=== PATIENT | female | born 1975 | race African-American/Black ===

== ENCOUNTER 2018-10-08 16:58 | Inpatient (IN) | payer OTHER ==
[2018-10-08 17:49] VITALS: BMI 26.2
--- NOTE | 2018-10-08 18:44 | HP ---
CIWA Score Nausea/Vomitin-Mild Nausea/No Vomiting Muscle Tremors: 4-Moderate,w/Arms Extend Anxiety: 3 Agitation: 0-Normal Activity Paroxysmal Sweats: 3 Orientation: 0-Oriented Tacttile Disturbances: 0-None Auditory Disturbances: 0-None Visual Disturbances: 0-None Headache: 3-Moderate CIWA-Ar Total Score: 14 - Admission Criteria OAS Guidelines: Admission for Medically Managed Detox: Requires at least one of the followin. CIWA greater than 12 2. Seizures within the past 24 hours 3. Delirium tremens within the past 24 hours 4. Hallucinations within the past 24 hours 5. Acute intervention needed for co occurring medical disorder 6. Acute intervention needed for co occurring psychiatric disorder 7. Severe withdrawal that cannot be handled at a lower level of care (continued vomiting, continued diarrhea, abnormal vital signs) requiring intravenous medication and/or fluids 8. Patient presents the following: CIWA greater than 12 (CHAITANYA 0.234) Admission Criteria Met: Admission criteria met Admission ROS [facility] Chief Complaint: Alcohol withdrawal. Allergies/Adverse Reactions: Allergies Allergy/AdvReac Type Severity Reaction Status Date / Time No Known Allergies Allergy Verified 10/08/18 17:36 History of Present Illness: This is the first detox attempt for this 43 yof w/ a hx of alcohol use. Alcohol use began at age 22. Current 1 pint x past 4 years. Current CHAITANYA 0.234 Nicotine use began at age 21. Denies other substance use hx. Longest length of sobriety for 4 months ending in November 1017. States hx seizures - last about 2 years ago; Last blackout x 2 weeks ago. PMHx: Elevated liver enzymes, Cough x 3 weeks. HTN, Hypothyroid, iron deficiency anemia. MHHx:Denies depression. Denies thoughts of harming self or others. Patient Name: Linsey Bethea Date: 1975 Address: [address] [place] [address] Sex: Female Rx Written Rx Dispensed Drug Quantity Days Supply Prescriber Name 02/16/2018 02/17/2018 chlordiazepoxide 25 mg capsule 20 5 Cristóbal Easley MD Exam Limitations: No Limitations - Ebola screening Have you been sick,other than usual withdrawal symptoms: No (Denies recent contact w/ measles. ) Do you have a fever: No - Review of Systems Constitutional: Chills, Diaphoresis, Changes in sleep (Difficulty staying asleep - tried melatonin - but still wakes up.) EENT: reports: No Symptoms Reported Respiratory: reports: Cough (x 3 weeks - clear phlegm) Cardiac: reports: No Symptoms Reported GI: reports: Nausea : reports: No Symptoms Reported Musculoskeletal: reports: Muscle Pain (Generalized muscle aches) Integumentary: reports: No Symptoms Reported Neuro: reports: Headache (Moderate frontal), Numbness (Numbness in fingers and toes - intermittent), Tremors Endocrine: reports: Excessive Sweating Hematology: reports: Anemia (Iron deficiency anemia - usually takes an infusion shots -none recently) Psychiatric: reports: Judgement Intact, Orientated x3, Anxious Patient History - Patient Medical History Hx Asthma: No Hx Chronic Obstructive Pulmonary Disease (COPD): No Hx Cardiac Disorders: No Hx Hypertension: No Hx Seizures: No Hx Diabetes: No Hx Gastrointestinal Disorders: No Hx Genitourinary Disorders: No Hx Sexually Transmitted Disorders: No Hx Renal Disease (ESRD): No Hx Depression: Yes Hx Suicide Attempt: No Hx Schizophrenia: No - Patient Surgical History Past Surgical History: No Hx Neurologic Surgery: No Hx Cataract Extraction: No Hx Cardiac Surgery: No Hx Lung Surgery: No Hx Breast Surgery: No Hx Breast Biopsy: No Hx Abdominal Surgery: No Hx Appendectomy: No Hx Cholecystectomy: No Hx Genitourinary Surgery: No Hx Section: No Hx Orthopedic Surgery: No Anesthesia Reaction: No - PPD History Previous Implant?: Yes Documented Results: Negative w/o proof Implanted On Prior R Admission?: Yes PPD to be Administered?: No - Reproductive History Patient is a Female of Child Bearing Age (11 -55 yrs old): Yes Last Menstrual Period: 09/10/17 (On depoprovera) Patient : No - Smoking Cessation Smoking history: Current every day smoker Have you smoked in the past 12 months: Yes Aproximately how many cigarettes per day: 10 Hx Chewing Tobacco Use: No Initiated information on smoking cessation: Yes 'Breaking Loose' booklet given: 10/08/18 - Substance & Tx. History Hx Alcohol Use: Yes Hx Substance Use: Yes Substance Use Type: Alcohol Hx Substance Use Treatment: Yes (first admission to any detox) - Substances abused Alcohol Substance route: Oral Frequency: Daily Amount used: 1PT OF VODKA Age of first use: 22 Date of last use: 10/08/18 Admission Physical Exam [facility] - Vital Signs Vital Signs: Vital Signs - 24 hr 10/08/18 17:44 Temperature 97.6 F Pulse Rate 89 Respiratory 16 Rate Blood Pressure 131/93 - Physical General Appearance: Yes: Nourished, Mild Distress, Alcohol on Breath, Tremorous , Sweating (Increased facial mo), Anxious HEENTM: Yes: EOMI (Jerking movements of eyes on (L) lateral gaze), Hearing grossly Normal, Normocephalic, JODIE Respiratory: Yes: Lungs Clear, Normal Breath Sounds, No Respiratory Distress Neck: Yes: No masses,lesions,Nodules, Supple Breast: Yes: Breast Exam Deferred Cardiology: Yes: Regular Rhythm, Regular Rate, S1, S2 Abdominal: Yes: Non Tender, Soft, Increased Bowel Sounds Genitourinary: Yes: Within Normal Limits Back: Yes: Normal Inspection Musculoskeletal: Yes: full range of Motion, Gait Steady Extremities: Yes: Normal Capillary Refill, Normal Range of Motion, Tremors 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 NML intact (Jerking movements of eyes on (L) lateral gaze), Fully Oriented, Alert, Motor Strength 5/5 Integumentary: Yes: Normal Color, Warm Lymphatic: Yes: Within Normal Limits - Diagnostic (1) Alcohol dependence with uncomplicated withdrawal Current Visit: Yes Status: Acute (2) Nystagmus Current Visit: Yes Status: Acute (3) History of asthma Current Visit: Yes Status: Chronic (4) Essential (primary) hypertension Current Visit: Yes Status: Chronic (5) Hypothyroid Current Visit: Yes Status: Chronic Qualifiers: Hypothyroidism type: unspecified Qualified Code(s): E03.9 - Hypothyroidism , unspecified Cleared for Admission [facility] - Detox or Rehab [facility] Level of Care: Medically Managed Detox Regimen/Protocol: Librium Claeared for Rehab Admission: No Breathalyzer - Breathalyzer Breathalyzer: 0.234 Urine Drug Screen - Test Device Lot number: [id number] Expiration date: 05/10/20 - Control Is test valid?: Yes - Results Drug screen NEGATIVE: Yes Inpatient Rehab Admission - Rehab Decision to Admit Inpatient rehab admission?: No
[2018-10-08] MEDS ORDERED: BISMUTH SUBSALICYLATE 524 MG/30 ML UD PO PRN (19:18)
[2018-10-08] MEDS ORDERED: chlordiazePOXIDE HCL 25 MG CAPSULE PO PRN (19:18)
[2018-10-08] MEDS ORDERED: MAG HYDROX/AL HYDROX/SIMETH 30 ML UNIT-DOSE CUP PO PRN (19:18)
[2018-10-08] MEDS ORDERED: chlordiazePOXIDE HCL 25 MG CAPSULE PO ONE (19:18)
[2018-10-08] MEDS ORDERED: MELATONIN 5 MG TABLETS PO PRN (19:18)
[2018-10-08] MEDS ORDERED: NICOTINE POLACRILEX 2 MG GUM BUC PRN (19:18)
[2018-10-08] MEDS ORDERED: ACETAMINOPHEN 325 MG TABLET (FP) PO PRN ×2 (19:18)
[2018-10-08] MEDS ORDERED: MAGNESIUM CITRATE 300 ML BOTTLE PO PRN (19:18)
[2018-10-08] MEDS ORDERED: METHOCARBAMOL 500 MG TABLET PO PRN (19:18)
[2018-10-08] MEDS ORDERED: MENTHOL/PHENOL 1 EACH UD MM PRN (19:18)
[2018-10-08] MEDS ORDERED: IBUPROFEN 400 MG TABLET (FP) PO PRN (19:18)
[2018-10-08] MEDS ORDERED: MAGNESIUM HYDROX 2400MG/30ML ORAL SUSPENSION 30 ML CUP PO PRN (19:18)
[2018-10-08] MEDS ORDERED: ALBUTEROL SO4 0.083% IH SOL 2.5 MG/3 ML VIAL.NEB. NEB PRN (19:21)
[2018-10-08] MEDS: guaiFENesin 200 MG/10 ML 10 ML UNIT-DOSE CUPS PO SCH (19:57)
[2018-10-08] MEDS: THIAMINE HCL 100 MG TABLET (FP) PO SCH (22:13)
[2018-10-08] MEDS: chlordiazePOXIDE HCL 25 MG CAPSULE PO SCH (22:14)
[2018-10-08 23:14] LABS: EPI CELLS 1.9 /HPF (0-5/HPF); URINE APPEARANCE CLOUDY; URINE BACTERIA >9000 /hpf (NEGATIVE); URINE BILIRUBIN NEGATIVE (NEGATIVE); URINE CASTS 51 /lpf (0-8); URINE COLOR YELLOW; URINE GLUCOSE (UA) NEGATIVE (NEGATIVE); URINE KETONE NEGATIVE (NEGATIVE); URINE LEUK ESTERASE 1+ (NEGATIVE); URINE NITRITE POSITIVE (NEGATIVE); URINE PROTEIN 1+ (NEGATIVE); URINE RBC 6 /hpf (0-4); URINE WBC 82 /hpf (0-5)
[2018-10-09] MEDS: guaiFENesin 200 MG/10 ML 10 ML UNIT-DOSE CUPS PO SCH ×5 (01:40→23:09)
[2018-10-09] MEDS: chlordiazePOXIDE HCL 25 MG CAPSULE PO SCH ×4 (04:48→22:23)
[2018-10-09] MEDS ORDERED: LEVOTHYROXINE NA 125 MCG TABLET (FP) PO SCH (07:00)
[2018-10-09] MEDS: LEVOTHYROXINE 100 MCG, LEVOTHYROXINE 25 MCG PO SCH (07:16)
[2018-10-09] MEDS ORDERED: PRENATAL VITAMINS W/ FOLIC ACID TABLET (FP) PO SCH (10:00)
[2018-10-09] MEDS ORDERED: amLODIPine BESYLATE 10 MG TABLET (FP) PO SCH (10:00)
[2018-10-09] MEDS ORDERED: NICOTINE 14 MG/24 HOURS TOPICAL PATCH TD SCH (10:00)
--- NOTE | 2018-10-09 10:16 | PN ---
S CIWA - CIWA Score Nausea/Vomitin-Mild Nausea/No Vomiting Muscle Tremors: 3 Anxiety: 3 Agitation: 3 Paroxysmal Sweats: 1-Minimal Palms Moist Orientation: 3-Disoriented Date>2 days Tacttile Disturbances: 0-None Auditory Disturbances: 0-None Visual Disturbances: 0-None Headache: 2-Mild CIWA-Ar Total Score: 16 [facility] Progress Note (SOAP) Subjective: headaches doing ok with librium detox protocol Objective: 10/09/18 10:16 Vital Signs Temperature 100.2 F H 10/09/18 09:32 Pulse Rate 101 H 10/09/18 10:00 Respiratory Rate 20 10/09/18 09:32 Blood Pressure 122/80 10/09/18 09:32 O2 Sat by Pulse Oximetry (%) Laboratory Last Values Urine Color Yellow 10/08/18 22:20 Urine Appearance Cloudy 10/08/18 22:20 Urine pH 6.0 (5.0-8.0) 10/08/18 22:20 Ur Specific [place] 1.015 (1.010-1.035) 10/08/18 22:20 Urine Protein 1+ (NEGATIVE) H 10/08/18 22:20 Urine Glucose (UA) Negative (NEGATIVE) 10/08/18 22:20 Urine Ketones Negative (NEGATIVE) 10/08/18 22:20 Urine Blood 2+ (NEGATIVE) H 10/08/18 22:20 Urine Nitrite Positive (NEGATIVE) H 10/08/18 22:20 Urine Bilirubin Negative (NEGATIVE) 10/08/18 22:20 Urine Urobilinogen 1.0 mg/dL (0.2-1.0) 10/08/18 22:20 Ur Leukocyte Esterase 1+ (NEGATIVE) H 10/08/18 22:20 Urine WBC (Auto) 82 /hpf (0-5) 10/08/18 22:20 Urine RBC (Auto) 6 /hpf (0-4) 10/08/18 22:20 Urine Casts (Auto) 51 /lpf (0-8) 10/08/18 22:20 U Epithel Cells (Auto) 1.9 /HPF (0-5/HPF) 10/08/18 22:20 Urine Bacteria (Auto) >9000 /hpf (NEGATIVE) 10/08/18 22:20 POC Urine HCG, Qual Negative 10/08/18 22:20 lab noted repeat ua 10/09/18 10:18 blood result pending Assessment: 10/09/18 10:18 withdrawal sx Plan: continue detox
[2018-10-09 10:19] LABS: ALBUMIN 3.6 g/dl (3.4-5.0); ALK PHOS 138 U/L (45-117); ANION GAP 12 MMOL/L (8-16); BILIRUBIN,TOTAL 0.6 mg/dL (0.2-1); BLOOD UREA NITROGEN 8 mg/dL (7-18); CALCIUM 9.4 mg/dL (8.5-10.1); CHLORIDE 105 mmol/L (98-107); CO2 23 mmol/L (21-32); CREATININE 0.7 mg/dL (0.55-1.3); GLUCOSE,RANDOM 75 mg/dL (74-106); POTASSIUM 3.1 mmol/L (3.5-5.1); SGOT/AST 399 U/L (15-37); SGPT/ALT 148 U/L (13-61); SODIUM 140 mmol/L (136-145); TOT PROT 7.5 g/dl (6.4-8.2)
[2018-10-09 10:22] LABS: HEMATOCRIT 43.7 % (32.4-45.2); HEMOGLOBIN 14.5 GM/dL (10.7-15.3); MCHC 33.2 g/dl (32.0-36.0); MEAN CELL VOLUME 93.2 fl (80-96); MEAN PLT VOLUME 9.2 fl (7.5-11.1); PLATELET COUNT 232 K/MM3 (134-434); RBC 4.69 M/mm3 (3.60-5.2); RDW 14.5 % (11.6-15.6); WHITE BLOOD COUNT 3.9 K/mm3 (4.0-10.0)
--- NOTE | 2018-10-09 11:46 | CONSULT ---
[facility] Psychiatric Consult - Data Date of interview: 10/09/18 Admission source: [facility] Identifying data: First admission to [facility] for this 43 y/o AA female self- referred for detoxification (alcohol). Examined at [address] [place] [address]. Patient is , a mother of four, domiciled and currently employed. Substance Abuse History: Discussed with the patient in this session. Ms Ruffin endorses a long standing history of alcohol abuse (since age 23). Additional details in current [facility] report : Smoking history: Current every day smoker. Have you smoked in the past 12 months: Yes. Aproximately how many cigarettes per day: 10. Hx Chewing Tobacco Use: No. Initiated information on smoking cessation: Yes. 'Breaking Loose' booklet given: 10/08/18. - Substance & Tx. History. Hx Alcohol Use: Yes. Hx Substance Use: Yes. Substance Use Type: Alcohol. Hx Substance Use Treatment: Yes (first admission to any detox). - Substances abused. Alcohol. Substance route: Oral. Frequency: Daily. Amount used: 1PT OF VODKA. Age of first use: 22. Date of last use: 10/08/18 Medical History: Remarkable for hypertension, bronchial asthma, iron-deficiency anemia, elevated liver function tests and hypothyroidism. Psychiatric History: Patient denies. Physical/Sexual Abuse/Trauma History: Patient denies. Additional Comment: Drug screen is negative. Mental Status Exam - Mental Status Exam Alert and Oriented to: Time, Place Cognitive Function: Good Patient Appearance: Well Groomed (short stature) Mood: Nervous, Withdrawn, Apprehensive, Hopeful Patient Behavior: Fatigued, Appropriate, Cooperative Speech Pattern: Clear, Appropriate Voice Loudness: Normal Thought Process: Intact, Goal Oriented Thought Disorder: Not Present Hallucinations: Denies Suicidal Ideation: Denies Homicidal Ideation: Denies Insight/Judgement: Fair Sleep: Fair Appetite: Good Muscle strength/Tone: Normal Gait/Station: Normal Psychiatric Findings - Problem List ([place] 1, 2,3) (1) Alcohol dependence with uncomplicated withdrawal Current Visit: Yes Status: Acute (2) Insomnia Current Visit: Yes Status: Chronic Comment: Mild. - Initial Treatment Plan Initial Treatment Plan: Psychoeducation. Sleep hygiene. Detoxification. Support. Relapse prevention (MAT) : discussed with the patient. Insomnia is addressed with melatonin at bedtime. Side effects/benefits revisited. Patient is in agreement with this careplan. Observation.
--- NOTE | 2018-10-09 12:55 | EKG ---
Test Reason : Blood Pressure : / mmHG Vent. Rate : 079 BPM Atrial Rate : 079 BPM P-R Int : 168 ms QRS Dur : 096 ms QT Int : 404 ms P-R-T Axes : 053 020 014 degrees QTc Int : 463 ms NORMAL SINUS RHYTHM NORMAL ECG NO PREVIOUS ECGS AVAILABLE Confirmed by KENDELL WOOD, DARLINE ([id number]) on 10/09/2018 12:54:57 PM Referred By: Confirmed By:DARLINE RDZ MD
[2018-10-09 17:16] LABS: EPI CELLS 11.2 /HPF (0-5/HPF); URINE APPEARANCE TURBID; URINE BILIRUBIN 1+ (NEGATIVE); URINE CASTS 105 /lpf (0-8); URINE COLOR DK YELLOW; URINE GLUCOSE (UA) NEGATIVE (NEGATIVE); URINE KETONE 1+ (NEGATIVE); URINE LEUK ESTERASE 2+ (NEGATIVE); URINE NITRITE POSITIVE (NEGATIVE); URINE PROTEIN 1+ (NEGATIVE); URINE RBC 8 /hpf (0-4); URINE WBC 78 /hpf (0-5)
[2018-10-09 17:33] LABS: URINE BACTERIA 22487.1 /hpf (NEGATIVE); URINE CRYSTALS MODERATE CALCIUM OXA /hpf
--- NOTE | 2018-10-09 19:35 | PN ---
[facility] Progress Note Note: Patient alert and oriented. Patient states PCP recommended alcohol detox because of abnormal lab findings. CMP Sodium 140 mmol/L (136-145) 10/09/18 07:00 Potassium 3.1 mmol/L (3.5-5.1) L 10/09/18 07:00 Chloride 105 mmol/L (98-107) 10/09/18 07:00 Carbon Dioxide 23 mmol/L (21-32) 10/09/18 07:00 Anion Gap 12 MMOL/L (8-16) 10/09/18 07:00 BUN 8 mg/dL (7-18) 10/09/18 07:00 Creatinine 0.7 mg/dL (0.55-1.3) 10/09/18 07:00 Creat Clearance w eGFR 91.76 (>60) 10/09/18 07:00 Random Glucose 75 mg/dL (74-106) 10/09/18 07:00 Calcium 9.4 mg/dL (8.5-10.1) 10/09/18 07:00 Total Bilirubin 0.6 mg/dL (0.2-1) 10/09/18 07:00 AST 399 U/L (15-37) H 10/09/18 07:00 ALT 148 U/L (13-61) H 10/09/18 07:00 Alkaline Phosphatase 138 U/L (45-117) H 10/09/18 07:00 Total Protein 7.5 g/dl (6.4-8.2) 10/09/18 07:00 Albumin 3.6 g/dl (3.4-5.0) 10/09/18 07:00 Reviewed labs. Discussed, with the patients, the effects of ETOH on liver. Encouraged 2 pitchers water daily. Encouraged f/u w/ PCP upon discharge.
[2018-10-09] MEDS: THIAMINE HCL 100 MG TABLET (FP) PO SCH (22:23)
[2018-10-10] MEDS ORDERED: LEVOTHYROXINE NA 25 MCG TABLET (FP) ONE (04:12)
[2018-10-10] MEDS ORDERED: LEVOTHYROXINE NA 100 MCG TABLET (FP) ONE (04:13)
[2018-10-10] MEDS: chlordiazePOXIDE HCL 25 MG CAPSULE PO SCH (05:19)
[2018-10-10] MEDS: guaiFENesin 200 MG/10 ML 10 ML UNIT-DOSE CUPS PO SCH (05:19)
[2018-10-10] MEDS: LEVOTHYROXINE 100 MCG, LEVOTHYROXINE 25 MCG PO SCH (07:21)
[2018-10-10 09:23] VITALS: BP 115/85; PULSE 86; TEMP 97.9
--- NOTE | 2018-10-10 13:13 | DS ---
[facility] Detox Discharge Summary Admission Date: 10/08/18 Discharge Date: 10/10/18 - History Present History: Alcohol Dependence Additional Comments: 43 years old female admitted on 10/08/18 for alcohol withdrawal stabilization feeling better today aftercare [address] reporting that she wants to see her children patient determine not to drink alcohol that she call home some one at home will open the door for her "I want to see my children" less tremor tolerate food and fluid well showered and breakfast alert no acute distress denies suicidal ideation Pertinent Past History: bring in medication list and lab report to 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 and K+ supplement discuss alcohol related low K+ and liver enzyme elevation - Physical Exam Results Vital Signs: Vital Signs Temperature 97.9 F 10/10/18 09:22 Pulse Rate 86 10/10/18 09:22 Respiratory Rate 20 10/10/18 09:22 Blood Pressure 115/85 10/10/18 09:22 O2 Sat by Pulse Oximetry (%) Pertinent Admission Physical Exam Findings: alcohol withdrawal sx Laboratory Last Values WBC 3.9 K/mm3 (4.0-10.0) L 10/09/18 07:00 RBC 4.69 M/mm3 (3.60-5.2) 10/09/18 07:00 Hgb 14.5 GM/dL (10.7-15.3) 10/09/18 07:00 Hct 43.7 % (32.4-45.2) 10/09/18 07:00 MCV 93.2 fl (80-96) 10/09/18 07:00 MCH 31.0 pg (25.7-33.7) 10/09/18 07:00 MCHC 33.2 g/dl (32.0-36.0) 10/09/18 07:00 RDW 14.5 % (11.6-15.6) 10/09/18 07:00 Plt Count 232 K/MM3 (134-434) 10/09/18 07:00 MPV 9.2 fl (7.5-11.1) 10/09/18 07:00 Sodium 140 mmol/L (136-145) 10/09/18 07:00 Potassium 3.1 mmol/L (3.5-5.1) L 10/09/18 07:00 Chloride 105 mmol/L (98-107) 10/09/18 07:00 Carbon Dioxide 23 mmol/L (21-32) 10/09/18 07:00 Anion Gap 12 MMOL/L (8-16) 10/09/18 07:00 BUN 8 mg/dL (7-18) 10/09/18 07:00 Creatinine 0.7 mg/dL (0.55-1.3) 10/09/18 07:00 Creat Clearance w eGFR 91.76 (>60) 10/09/18 07:00 Random Glucose 75 mg/dL (74-106) 10/09/18 07:00 Calcium 9.4 mg/dL (8.5-10.1) 10/09/18 07:00 Total Bilirubin 0.6 mg/dL (0.2-1) 10/09/18 07:00 AST 399 U/L (15-37) H 10/09/18 07:00 ALT 148 U/L (13-61) H 10/09/18 07:00 Alkaline Phosphatase 138 U/L (45-117) H 10/09/18 07:00 Total Protein 7.5 g/dl (6.4-8.2) 10/09/18 07:00 Albumin 3.6 g/dl (3.4-5.0) 10/09/18 07:00 Urine Color Dk yellow 10/09/18 14:41 Urine Appearance Turbid 10/09/18 14:41 Urine pH 6.0 (5.0-8.0) 10/09/18 14:41 Ur Specific [place] 1.026 (1.010-1.035) 10/09/18 14:41 Urine Protein 1+ (NEGATIVE) H 10/09/18 14:41 Urine Glucose (UA) Negative (NEGATIVE) 10/09/18 14:41 Urine Ketones 1+ (NEGATIVE) H 10/09/18 14:41 Urine Blood 2+ (NEGATIVE) H 10/09/18 14:41 Urine Nitrite Positive (NEGATIVE) H 10/09/18 14:41 Urine Bilirubin 1+ (NEGATIVE) H 10/09/18 14:41 Urine Urobilinogen 1.0 mg/dL (0.2-1.0) 10/09/18 14:41 Ur Leukocyte Esterase 2+ (NEGATIVE) H 10/09/18 14:41 Urine WBC (Auto) 78 /hpf (0-5) 10/09/18 14:41 Urine RBC (Auto) 8 /hpf (0-4) 10/09/18 14:41 Urine Casts (Auto) 105 /lpf (0-8) 10/09/18 14:41 U Pathogenic Cast Auto Few granular casts /lpf (NEGATIVE) 10/09/18 14:41 U Epithel Cells (Auto) 11.2 /HPF (0-5/HPF) 10/09/18 14:41 Urine Crystals (Auto) Moderate calcium oxa /hpf 10/09/18 14:41 Urine Bacteria (Auto) 96891.1 /hpf (NEGATIVE) 10/09/18 14:41 POC Urine HCG, Qual Negative 10/08/18 22:20 RPR Titer Nonreactive (NONREACTIVE) 10/09/18 07:00 lab noted uti treated with bactrim ds bid liver enzymme elevation level [facility] low K+ treated with K-dur follow up level with aftercare appointment - Treatment Hospital Course: Detox Protocol Followed, Detoxed Safely, Responded well, Discharged Condition Good, Rehab Referral Accepted Patient has Accepted a Rehab Referral to: [facility] - Medication Discharge Medications: Ambulatory Orders Levothyroxine [Synthroid -] 125 mcg PO DAILY 10/08/18 Amlodipine Besylate [Norvasc -] 10 mg PO DAILY #30 tablet 10/10/18 Levothyroxine [Synthroid -] 125 mcg PO DAILY@0700 #30 tablet 10/10/18 Potassium Chloride [K-Dur -] 20 meq PO BID #20 tablet.er 10/10/18 Sulfamethoxazole/Trimethoprim [Bactrim DS -] 1 tab PO BID #20 tablet 10/10/18 - Diagnosis (1) Hypokalemia Status: Chronic (2) UTI (urinary tract infection) Status: Chronic Qualifiers: Urinary tract infection type: site unspecified Hematuria presence: without hematuria Qualified Code(s): N39.0 - Urinary tract infection, site not specified (3) Liver enzyme elevation Status: Chronic (4) Alcohol dependence with uncomplicated withdrawal Status: Acute (5) Essential (primary) hypertension Status: Chronic (6) Hypothyroid Status: Chronic Qualifiers: Hypothyroidism type: unspecified Qualified Code(s): E03.9 - Hypothyroidism , unspecified - AMA Did Patient Leave Against Medical Advice: No
[2018-10-10] MEDS ORDERED: chlordiazePOXIDE HCL 10 MG CAPSULE PO SCH (23:00)
[2018-10-10] MEDS ORDERED: chlordiazePOXIDE HCL 10 MG CAPSULE PO PRN (23:00)
[2018-10-11] MEDS ORDERED: chlordiazePOXIDE HCL 10 MG CAPSULE PO SCH (23:00)
== END 2018-10-10 10:00 | disposition home or self-care (01) | DRG 897 ==
LOC: YASAS 16:58 → Y3N 19:08
PROVIDERS: ADMIT Surgery; ATTEND Surgery
PROC: HZ2ZZZZ Detoxification Services for Substance Abuse Treatment (ICD-10-PCS; principal; 2018-10-08)
DX: F10.230 Alcohol dependence with withdrawal, uncomplicated (principal); N39.0 Urinary tract infection, site not specified; I10 Essential (primary) hypertension; E87.6 Hypokalemia; D50.9 Iron deficiency anemia, unspecified; E03.9 Hypothyroidism, unspecified; G47.00 Insomnia, unspecified; H54.40 Blindness, one eye, unspecified eye; R74.8 Abnormal levels of other serum enzymes; R94.5 Abnormal results of liver function studies; Z86.19 Personal history of other infectious and parasitic diseases; Z86.79 Personal history of other diseases of the circulatory system
CPT/HCPCS: 36415; 80053; 81003; 81025; 85027; 86593; 93005; 93010

== ENCOUNTER 2021-12-13 09:26 | Inpatient (IN) | payer OTHER ==
[2021-12-13 10:18] VITALS: BMI 26.5
[2021-12-13] MEDS ORDERED: BISMUTH SUBSALICYLATE 262 MG/15 ML BTL PO PRN (10:59)
[2021-12-13] MEDS ORDERED: LOPERAMIDE HCL 2 MG CAPSULE PO PRN (10:59)
[2021-12-13] MEDS ORDERED: IBUPROFEN 600 MG TABLET (FP) PO PRN (10:59)
[2021-12-13] MEDS ORDERED: DICYCLOMINE HCL 10 MG CAPSULE PO PRN (10:59)
[2021-12-13] MEDS ORDERED: MAGNESIUM HYDROX 2400MG/30ML ORAL SUSPENSION 30 ML CUP PO PRN (10:59)
[2021-12-13] MEDS ORDERED: METHOCARBAMOL 500 MG TABLET PO PRN (10:59)
[2021-12-13] MEDS ORDERED: MAG HYDROX/AL HYDROX/SIMETH 30 ML UNIT-DOSE CUP PO PRN (10:59)
[2021-12-13] MEDS ORDERED: chlordiazePOXIDE HCL 25 MG CAPSULE PO PRN (10:59)
[2021-12-13] MEDS ORDERED: MAGNESIUM CITRATE 300 ML BOTTLE PO PRN (10:59)
[2021-12-13] MEDS ORDERED: ONDANSETRON *ODT* 4 MG TABLET SL PRN (10:59)
[2021-12-13] MEDS ORDERED: IBUPROFEN 400 MG TABLET (FP) PO PRN (10:59)
[2021-12-13] MEDS ORDERED: NICOTINE 10 MG CARTRIDGE (INHALER) IH PRN (10:59)
[2021-12-13] MEDS ORDERED: ACETAMINOPHEN 325 MG TABLET (FP) PO PRN ×2 (10:59)
[2021-12-13] MEDS ORDERED: BENZOCAINE/MENTHOL (CHLORASEPTIC ) LOZENGE MM PRN (10:59)
[2021-12-13] MEDS ORDERED: chlordiazePOXIDE HCL 25 MG CAPSULE PO SCH (11:00)
[2021-12-13] MEDS ORDERED: LORazepam 1 MG TABLET PO PRN (11:11)
[2021-12-13] MEDS: LORazepam 2 MG TABLET PO SCH ×3 (12:07→22:16)
[2021-12-13] MEDS: NICOTINE 21 MG/24 HOURS TOPICAL PATCH TD SCH (12:08)
[2021-12-13] MEDS: PRENATAL VITAMINS W/ FOLIC ACID TABLET (FP) PO SCH (12:08)
[2021-12-13] MEDS: hydrOXYzine PAMOATE 25 MG CAPSULE (FP) PO SCH ×3 (14:04→22:16)
[2021-12-13] MEDS: POTASSIUM CHLORIDE TABS 20 MEQ TABLET.ER (FP) PO SCH (19:11)
[2021-12-13] MEDS: THIAMINE HCL 100 MG TABLET (FP) PO SCH (22:16)
[2021-12-13] MEDS: MELATONIN 5 MG TABLETS PO SCH (22:16)
[2021-12-14] MEDS: hydrOXYzine PAMOATE 25 MG CAPSULE (FP) PO SCH ×5 (06:21→23:04)
[2021-12-14] MEDS: LORazepam 2 MG TABLET PO SCH ×4 (06:21→23:03)
[2021-12-14] MEDS: POTASSIUM CHLORIDE TABS 20 MEQ TABLET.ER (FP) PO SCH ×2 (06:22→18:59)
[2021-12-14] MEDS ORDERED: LEVOTHYROXINE NA 25 MCG TABLET (FP) PO SCH (07:00)
[2021-12-14] MEDS: LEVOTHYROXINE 25 MCG, LEVOTHYROXINE 100 MCG PO SCH (07:18)
[2021-12-14 08:27] LABS: HEMATOCRIT 38.7 % (32.4-45.2); HEMOGLOBIN 12.6 GM/dL (10.7-15.3); MCH 28.9 pg (25.7-33.7); MCHC 32.5 g/dl (32.0-36.0); MEAN PLT VOLUME 8.6 fl (7.5-11.1); PLATELET COUNT 293 10^3/uL (134-434); RBC 4.35 M/mm3 (3.60-5.2); RDW 16.1 % (11.6-15.6); WHITE BLOOD COUNT 4.6 K/mm3 (4.0-10.0)
[2021-12-14 08:37] LABS: CALCIUM 9.4 mg/dL (8.5-10.1)
[2021-12-14 08:38] LABS: BLOOD UREA NITROGEN 10.3 mg/dL (7-18)
[2021-12-14 08:41] LABS: CREATININE 0.7 mg/dL (0.55-1.3)
[2021-12-14 08:42] LABS: BILIRUBIN,TOTAL 0.4 mg/dL (0.2-1)
[2021-12-14] MEDS ORDERED: amLODIPine BESYLATE 10 MG TABLET (FP) PO SCH (10:00)
[2021-12-14] MEDS: PRENATAL VITAMINS W/ FOLIC ACID TABLET (FP) PO SCH (10:47)
[2021-12-14] MEDS: NICOTINE 21 MG/24 HOURS TOPICAL PATCH TD SCH (10:48)
[2021-12-14] MEDS: MELATONIN 5 MG TABLETS PO SCH (23:04)
[2021-12-14] MEDS: THIAMINE HCL 100 MG TABLET (FP) PO SCH (23:04)
[2021-12-15] MEDS ORDERED: LORazepam 1 MG TABLET PO SCH (05:00)
[2021-12-15] MEDS ORDERED: chlordiazePOXIDE HCL 25 MG CAPSULE PO SCH (05:00)
[2021-12-15] MEDS: POTASSIUM CHLORIDE TABS 20 MEQ TABLET.ER (FP) PO SCH (05:55)
[2021-12-15] MEDS: hydrOXYzine PAMOATE 25 MG CAPSULE (FP) PO SCH (05:55)
[2021-12-15] MEDS: LEVOTHYROXINE 25 MCG, LEVOTHYROXINE 100 MCG PO SCH (07:12)
[2021-12-15 09:04] VITALS: BP 128/86; PULSE 61; TEMP 96.7
[2021-12-16] MEDS ORDERED: chlordiazePOXIDE HCL 10 MG CAPSULE PO PRN
[2021-12-16] MEDS ORDERED: LORazepam 0.5 MG TABLET PO PRN
[2021-12-16] MEDS ORDERED: chlordiazePOXIDE HCL 10 MG CAPSULE PO SCH (05:00)
[2021-12-16] MEDS ORDERED: LORazepam 0.5 MG TABLET PO SCH (05:00)
[2021-12-17] MEDS ORDERED: chlordiazePOXIDE HCL 10 MG CAPSULE PO SCH (05:00)
[2021-12-17] MEDS ORDERED: LORazepam 0.5 MG TABLET PO ONE (05:00)
[2021-12-18] MEDS ORDERED: chlordiazePOXIDE HCL 10 MG CAPSULE PO ONE (05:00)
== END 2021-12-15 10:26 | disposition home or self-care (01) | DRG 897 ==
LOC: YASAS 09:26 → Y3N 11:11
PROVIDERS: ADMIT Allergy & Immunology; ATTEND Surgery
PROC: HZ2ZZZZ Detoxification Services for Substance Abuse Treatment (ICD-10-PCS; principal; 2021-12-13)
DX: F10.230 Alcohol dependence with withdrawal, uncomplicated (principal); E03.9 Hypothyroidism, unspecified; G47.00 Insomnia, unspecified; I10 Essential (primary) hypertension; J45.909 Unspecified asthma, uncomplicated; R94.5 Abnormal results of liver function studies
CPT/HCPCS: 36415; 80053; 85027; 86780; 93005; 93010; C9803-CS; Q0162; U0003; U0005

== ENCOUNTER 2021-12-18 19:39 | Inpatient (IN) | payer OTHER ==
[2021-12-18 20:12] VITALS: BMI 27.8
[2021-12-18] MEDS ORDERED: DICYCLOMINE HCL 10 MG CAPSULE PO PRN (20:23)
[2021-12-18] MEDS ORDERED: NICOTINE POLACRILEX 2 MG GUM BUC PRN (20:23)
[2021-12-18] MEDS ORDERED: P-EPHED 60MG/TRIPROLIDI 2.5MG TABLET PO PRN (20:23)
[2021-12-18] MEDS ORDERED: IBUPROFEN 600 MG TABLET (FP) PO PRN (20:23)
[2021-12-18] MEDS ORDERED: guaiFENesin 200 MG/10 ML 10 ML UNIT-DOSE CUPS PO PRN (20:23)
[2021-12-18] MEDS ORDERED: LOPERAMIDE HCL 2 MG CAPSULE PO PRN (20:23)
[2021-12-18] MEDS ORDERED: BISMUTH SUBSALICYLATE 524 MG/30 ML PO PRN (20:23)
[2021-12-18] MEDS ORDERED: BENZOCAINE/MENTHOL (CHLORASEPTIC ) LOZENGE MM PRN (20:23)
[2021-12-18] MEDS ORDERED: MAGNESIUM CITRATE 300 ML BOTTLE PO PRN (20:23)
[2021-12-18] MEDS ORDERED: ONDANSETRON *ODT* 4 MG TABLET SL PRN (20:23)
[2021-12-18] MEDS ORDERED: MAGNESIUM HYDROX 2400MG/30ML ORAL SUSPENSION 30 ML CUP PO PRN (20:23)
[2021-12-18] MEDS ORDERED: MAG HYDROX/AL HYDROX/SIMETH 30 ML UNIT-DOSE CUP PO PRN (20:23)
[2021-12-18] MEDS ORDERED: IBUPROFEN 400 MG TABLET (FP) PO PRN (20:23)
[2021-12-18] MEDS ORDERED: ACETAMINOPHEN 325 MG TABLET (FP) PO PRN ×2 (20:23)
[2021-12-18] MEDS: MELATONIN 5 MG TABLETS PO SCH (22:00)
[2021-12-18] MEDS: ALBUTEROL SO4 HFA INHALER IH SCH (22:00)
[2021-12-18] MEDS: THIAMINE HCL 100 MG TABLET (FP) PO SCH (22:01)
[2021-12-19] MEDS: ALBUTEROL SO4 HFA INHALER IH SCH ×4 (03:15→22:25)
[2021-12-19] MEDS ORDERED: LEVOTHYROXINE NA 125 MCG TABLET (FP) PO SCH (07:00)
[2021-12-19] MEDS: hydrOXYzine PAMOATE 25 MG CAPSULE (FP) PO PRN ×4 (08:09→22:25)
[2021-12-19] MEDS: METHOCARBAMOL 500 MG TABLET PO PRN (08:09)
[2021-12-19] MEDS ORDERED: LEVOTHYROXINE 100 MCG, LEVOTHYROXINE 25 MCG PO ONE (09:00)
[2021-12-19] MEDS ORDERED: amLODIPine BESYLATE 10 MG TABLET (FP) PO SCH (10:00)
[2021-12-19] MEDS ORDERED: PRENATAL VITAMINS W/ FOLIC ACID TABLET (FP) PO SCH (10:00)
[2021-12-19] MEDS ORDERED: NICOTINE 21 MG/24 HOURS TOPICAL PATCH TD SCH (10:00)
[2021-12-19 11:53] LABS: HEMOGLOBIN 12.1 GM/dL (10.7-15.3); MCH 28.9 pg (25.7-33.7); MCHC 32.9 g/dl (32.0-36.0); MEAN PLT VOLUME 8.4 fl (7.5-11.1); PLATELET COUNT 213 10^3/uL (134-434)
[2021-12-19 12:18] LABS: BLOOD UREA NITROGEN 9.4 mg/dL (7-18)
[2021-12-19 12:20] LABS: CREATININE 0.6 mg/dL (0.55-1.3)
[2021-12-19 12:21] LABS: BILIRUBIN,TOTAL 0.3 mg/dL (0.2-1); TOT PROT 7.5 g/dl (6.4-8.2)
[2021-12-19] MEDS ORDERED: NICOTINE 10 MG CARTRIDGE (INHALER) IH PRN (12:42)
[2021-12-19] MEDS: THIAMINE HCL 100 MG TABLET (FP) PO SCH (22:25)
[2021-12-19] MEDS: MELATONIN 5 MG TABLETS PO SCH (22:25)
[2021-12-20] MEDS: ALBUTEROL SO4 HFA INHALER IH SCH (03:21)
[2021-12-20] MEDS: hydrOXYzine PAMOATE 25 MG CAPSULE (FP) PO PRN (06:25)
[2021-12-20] MEDS: METHOCARBAMOL 500 MG TABLET PO PRN (06:25)
[2021-12-20] MEDS ORDERED: LEVOTHYROXINE 100 MCG, LEVOTHYROXINE 25 MCG PO SCH (07:00)
[2021-12-20 09:07] VITALS: BP 119/72; PULSE 73; TEMP 98.3
== END 2021-12-20 10:09 | disposition home or self-care (01) | DRG 897 ==
LOC: YASAS 19:39 → Y3N 20:30
PROVIDERS: ADMIT Allergy & Immunology; ATTEND Allergy & Immunology
PROC: HZ2ZZZZ Detoxification Services for Substance Abuse Treatment (ICD-10-PCS; principal; 2021-12-18)
DX: F10.230 Alcohol dependence with withdrawal, uncomplicated (principal); F17.210 Nicotine dependence, cigarettes, uncomplicated; F10.282 Alcohol dependence with alcohol-induced sleep disorder; D64.9 Anemia, unspecified; E03.9 Hypothyroidism, unspecified; I10 Essential (primary) hypertension; J45.909 Unspecified asthma, uncomplicated; R56.9 Unspecified convulsions
CPT/HCPCS: 36415; 80053; 81025; 85027; 86780; C9803-CS; U0003; U0005

== ENCOUNTER 2023-01-10 23:08 | Inpatient (IN) | payer OTHER ==
[2023-01-10 09:49] VITALS: BMI 31.1
[2023-01-10] MEDS ORDERED: IBUPROFEN 600 MG TABLET (FP) PO PRN (23:56)
[2023-01-10] MEDS ORDERED: BISMUTH SUBSALICYLATE 524 MG/30 ML PO PRN (23:56)
[2023-01-10] MEDS ORDERED: METHOCARBAMOL 500 MG TABLET PO PRN (23:56)
[2023-01-10] MEDS ORDERED: ONDANSETRON *ODT* 4 MG TABLET SL PRN (23:56)
[2023-01-10] MEDS ORDERED: ACETAMINOPHEN 325 MG TABLET (FP) PO PRN (23:56)
[2023-01-10] MEDS ORDERED: IBUPROFEN 400 MG TABLET (FP) PO PRN (23:56)
[2023-01-10] MEDS ORDERED: P-EPHED 60MG/TRIPROLIDI 2.5MG TABLET PO PRN (23:56)
[2023-01-10] MEDS ORDERED: hydrOXYzine PAMOATE 25 MG CAPSULE (FP) PO PRN (23:56)
[2023-01-10] MEDS ORDERED: BENZOCAINE/MENTHOL (CHLORASEPTIC ) LOZENGE MM PRN (23:56)
[2023-01-10] MEDS ORDERED: MAGNESIUM HYDROX 2400MG/30ML ORAL SUSPENSION 30 ML CUP PO PRN (23:56)
[2023-01-10] MEDS ORDERED: guaiFENesin 600 MG TABLET.ER (FP) PO PRN (23:56)
[2023-01-10] MEDS ORDERED: POLYETHYLENE GLYCOL (HEALTHYLAX) 3350 17 GM PACKET PO PRN (23:56)
[2023-01-10] MEDS ORDERED: DICYCLOMINE HCL 10 MG CAPSULE PO PRN (23:56)
[2023-01-10] MEDS ORDERED: LOPERAMIDE HCL 2 MG CAPSULE PO PRN (23:56)
[2023-01-10] MEDS ORDERED: BENZONATATE 200 MG CAPSULE PO PRN (23:56)
[2023-01-10] MEDS ORDERED: NICOTINE POLACRILEX 2 MG GUM BUC PRN (23:56)
[2023-01-10] MEDS ORDERED: MAG HYDROX/AL HYDROX/SIMETH 30 ML UNIT-DOSE CUP PO PRN (23:56)
[2023-01-11] MEDS ORDERED: amLODIPine BESYLATE 5 MG TABLET (FP) PO SCH ×2 (10:00→10:16)
[2023-01-11] MEDS: PRENATAL VITAMINS W/ FOLIC ACID TABLET (FP) PO SCH (10:04)
[2023-01-11] MEDS ORDERED: LORazepam 1 MG TABLET PO PRN (10:10)
[2023-01-11] MEDS: LORazepam 2 MG TABLET PO SCH ×3 (10:38→22:18)
[2023-01-11 11:34] LABS: POTASSIUM 3.6 mmol/L (3.5-5.1)
[2023-01-11 11:42] LABS: ALBUMIN 3.4 g/dl (3.4-5.0); BLOOD UREA NITROGEN 12.3 mg/dL (7-18); CALCIUM 9.6 mg/dL (8.5-10.1)
[2023-01-11 11:43] LABS: BILIRUBIN,TOTAL 0.3 mg/dL (0.2-1); CREATININE 0.6 mg/dL (0.55-1.3)
[2023-01-11 11:44] LABS: TOT PROT 7.5 g/dl (6.4-8.2)
[2023-01-11 12:04] LABS: HEMATOCRIT 34.9 % (32.4-45.2); HEMOGLOBIN 10.4 GM/dL (10.7-15.3); MCH 20.2 pg (25.7-33.7); MCHC 29.8 g/dl (32.0-36.0); MEAN CELL VOLUME 67.7 fl (80-96); MEAN PLT VOLUME 8.2 fl (7.5-11.1); PLATELET COUNT 215 10^3/uL (134-434); RBC 5.15 M/mm3 (3.60-5.2); RDW 21.4 % (11.6-15.6)
[2023-01-11] MEDS: THIAMINE HCL 100 MG TABLET (FP) PO SCH (22:18)
[2023-01-11] MEDS: MELATONIN 5 MG TABLETS PO SCH (22:18)
[2023-01-12] MEDS: LORazepam 1 MG TABLET PO SCH ×4 (05:38→22:35)
[2023-01-12] MEDS: LEVOTHYROXINE 100 MCG, LEVOTHYROXINE 25 MCG PO SCH (06:06)
[2023-01-12] MEDS ORDERED: LEVOTHYROXINE NA 25 MCG TABLET (FP) PO SCH (07:00)
[2023-01-12] MEDS: PRENATAL VITAMINS W/ FOLIC ACID TABLET (FP) PO SCH (09:57)
[2023-01-12] MEDS: amLODIPine BESYLATE 10 MG TABLET (FP) PO SCH (09:57)
[2023-01-12 21:23] VITALS: RESP 16
[2023-01-12] MEDS: MELATONIN 5 MG TABLETS PO SCH (22:35)
[2023-01-12] MEDS: THIAMINE HCL 100 MG TABLET (FP) PO SCH (22:36)
[2023-01-13] MEDS ORDERED: LORazepam 0.5 MG TABLET PO PRN
[2023-01-13] MEDS: LORazepam 0.5 MG TABLET PO SCH ×2 (05:34→10:00)
[2023-01-13] MEDS: LEVOTHYROXINE 100 MCG, LEVOTHYROXINE 25 MCG PO SCH (06:15)
[2023-01-13 06:17] VITALS: BP 127/84; PULSE 78; TEMP 98.5
[2023-01-13] MEDS: amLODIPine BESYLATE 10 MG TABLET (FP) PO SCH (10:00)
[2023-01-13] MEDS: PRENATAL VITAMINS W/ FOLIC ACID TABLET (FP) PO SCH (10:00)
[2023-01-14] MEDS ORDERED: LORazepam 0.5 MG TABLET PO ONE (05:00)
== END 2023-01-13 10:00 | disposition home or self-care (01) | DRG 897 ==
LOC: YASAS 23:08 → Y6N 23:50
PROVIDERS: ADMIT Allergy & Immunology; ATTEND Surgery
PROC: HZ2ZZZZ Detoxification Services for Substance Abuse Treatment (ICD-10-PCS; principal; 2023-01-10)
DX: F10.230 Alcohol dependence with withdrawal, uncomplicated (principal); F10.220 Alcohol dependence with intoxication, uncomplicated; F10.282 Alcohol dependence with alcohol-induced sleep disorder; F10.280 Alcohol dependence with alcohol-induced anxiety disorder; F17.210 Nicotine dependence, cigarettes, uncomplicated; I10 Essential (primary) hypertension; J45.909 Unspecified asthma, uncomplicated; E03.9 Hypothyroidism, unspecified
CPT/HCPCS: 36415; 80053; 80305; 81025; 85027; 86780; 87635